=== PATIENT | female | born 1955 | race Two or more races ===

== ENCOUNTER 2024-01-10 10:41 | Outpatient (AMB) | payer MEDICARE, SELFPAY ==
--- NOTE | 2024-01-10 11:14 | PD.ORTHCLVIS ---
Vital signs 01/10/24 11:15 Height 1.45 m Height Method Stated Weight 84.056 kg Weight Measurement Method Standing Scale BMI 39.9 BP 141/79 H Blood Pressure Source Automatic Cuff Blood Pressure Location Right Upper Arm Position Sitting Respiration 18 Pulse 78 Pulse Source Monitor Temp 97.5 F Temp Source Temporal Artery Scan Pulse Oximetry (%) 97 Oxygen Delivery Method Room Air Med/Allergies Allergies & Medications Allergies No Known Allergies Allergy (Verified 12/13/23 08:47) Medication Reconciliation lisinopril 20 mg tablet 20 mg PO BID 10/07/23 [History Confirmed 01/10/24] aspirin 81 mg tablet,delayed release 81 mg PO BID #60 tabs 11/23/23 [Rx Confirmed 01/10/24] gabapentin 300 mg capsule 300 mg PO .qhs #30 caps 11/23/23 [Rx] sennosides 8.6 mg-docusate sodium 50 mg tablet (Senna-S) 1 tab-cap PO QDAY #30 tabs 11/23/23 [Rx Confirmed 01/10/24] oxycodone 5 mg tablet 5 mg PO Q6H PRN pain #28 tabs 12/02/23 [Rx Confirmed 01/10/24] oxycodone 5 mg tablet 5 mg PO Q6H PRN pain #28 tabs 12/13/23 [Rx Confirmed 01/10/24] cyclobenzaprine 5 mg tablet 5 mg PO TID PRN muscle spasm #60 tabs 12/21/23 [Rx Confirmed 01/10/24] oxycodone 5 mg tablet 5 mg PO Q6H PRN pain #28 tabs 12/21/23 [Rx Confirmed 01/10/24] cyclobenzaprine 5 mg tablet 5 mg PO TID PRN muscle spasm #60 tabs 12/27/23 [Rx Confirmed 01/10/24] Subjective Visit Visit for: follow up visit Immunization / Flu Flu Vaccine in the Last 12 Months: No Flu Vaccine Exclusion Criteria: No Exclusion Criteria History of Present Illness Chief complaint: FOLLOW UP Personal History Occupation: DISABLED Red flag PMH: none Pain Pain level (0-10): 5 Pain duration: COMES AND GOES Pain location: inside (medial), outside (lateral) and anterior Pain quality: dull and aching Ambulatory data Ambulatory device: cane Treatments Improvement with previous injections: No Improvement with PT: No Improvement with NSAIDS: n/a Review of Systems Review of Systems: All systems negative unless otherwise noted in HPI. Assessment and Plan Advanced Care Planning Discussion Advance care planning discussed with:: patient Office Procedures GNS Level of Care Nursing/Assessment Patient Status: Established Patient Nursing Assessment/Reassesment: Medication Reconciliation, Update PMH in EMR and Vital Signs Coordination of Care: Complex Care and Chronic Disease 1-5, Education Complex Pt/Fam, Consent,records obtained, informed consent, Results/Orders obtained and Staff clarify orders Special Needs: Language special needs Established Patient Charge Established Patient Point Assignment: 95 Established Patient Point Charge: EP Level 3 (80-115) Past Medical History Past Medical History Have you ever been diagnosed with any of the following: Neurological Problems Seizures: No Cardiology Problems Congestive Heart Failure: No Hypertension: Yes Respiratory Problems Chronic Obstructive Pulmonary Disease (COPD): No Smoking: No Smoking Cessation Counseling: No Smoking Exposure: No Tobacco Use: No Stomache/Intestinal Problems Hepatitis: No Obesity: Yes Genital/Urinary Problems Renal Disease: No Reproductive Problems Previous Pregnancies: Yes Musculoskeletal Problems Arthritis: Yes Endocrine Problems Diabetes Mellitus Type 1: No Diabetes Mellitus Type 2: No Other Problems Hospitalization: No Shingles: No Blood Transfusions: No Blood Transfusion Reaction: No Anesthesia Reactions: No Cancer: No Surgical History Total Knee Replacement: Yes
[2024-01-10 11:15] VITALS: BP 141/79; PULSE 78; RESP 18; TEMP 36.4; O2SAT 97; BMI 39.9
== END 2024-01-10 11:32 | disposition home or self-care (01) ==
LOC: HODSRG 10:41
PROVIDERS: Supervising Provider Orthopaedic Surgery Adult Reconstructive Orthopaedic Surgery; Visit Provider Orthopaedic Surgery Adult Reconstructive Orthopaedic Surgery
DX: R52 Pain, unspecified (principal); I10 Essential (primary) hypertension
CPT/HCPCS: 99213; G0463

== ENCOUNTER 2024-05-22 14:46 | Outpatient (AMB) | payer MEDICARE, MEDICAID, SELFPAY ==
[2024-05-22 14:53] VITALS: BP 111/73; PULSE 87; RESP 18; TEMP 36.1; O2SAT 95; BMI 40.7
--- NOTE | 2024-05-22 14:53 | ORTHONT_ITS ---
Vital signs 05/22/24 14:53 Height 1.45 m Height Method Stated Weight 85.729 kg Weight Measurement Method Standing Scale BMI 40.7 BP 111/73 Blood Pressure Source Automatic Cuff Blood Pressure Location Right Upper Arm Position Sitting Respiration 18 Pulse 87 Pulse Source Monitor Temp 97.0 F Temp Source Temporal Artery Scan Pulse Oximetry (%) 95 Oxygen Delivery Method Room Air Med/Allergies Allergies & Medications Allergies No Known Allergies Allergy (Verified 05/22/24 14:54) Medication Reconciliation lisinopril 20 mg tablet 20 mg PO BID 10/07/23 [History Confirmed 05/22/24] aspirin 81 mg tablet,delayed release 81 mg PO BID #60 tabs 11/23/23 [Rx Confirmed 05/22/24] sennosides 8.6 mg-docusate sodium 50 mg tablet (Senna-S) 1 tab-cap PO QDAY #30 tabs 11/23/23 [Rx Confirmed 05/22/24] oxycodone 5 mg tablet 5 mg PO Q6H PRN pain #28 tabs 12/02/23 [Rx Confirmed 05/22/24] oxycodone 5 mg tablet 5 mg PO Q6H PRN pain #28 tabs 12/13/23 [Rx Confirmed 05/22/24] cyclobenzaprine 5 mg tablet 5 mg PO TID PRN muscle spasm #60 tabs 12/21/23 [Rx Confirmed 05/22/24] oxycodone 5 mg tablet 5 mg PO Q6H PRN pain #28 tabs 12/21/23 [Rx Confirmed 05/22/24] cyclobenzaprine 5 mg tablet 5 mg PO TID PRN muscle spasm #60 tabs 12/27/23 [Rx Confirmed 05/22/24] gabapentin 300 mg capsule 300 mg PO .qhs #30 caps 01/10/24 [Rx Confirmed 05/22/24] Exam Exam Patient is in no acute distress and is cooperative with the examination today. Breathing is nonlabored. Patient has a normal mood and affect. Bilateral extremities were evaluated and demonstrates sensation intact to light touch. Palpable pedal pulses are present. No significant edema is present. Bilateral hips were examined. The patient has no pain with log roll of the hips. Internal rotation to 30 degrees and external rotation to 30 degrees is painless. Negative FADIR. Right knee was examined today. INcision is clean, dry, and intact The left knee is C/D/I. ROM 0-95 Assessment and Plan Problem List (1) Unilateral primary osteoarthritis, left knee: Status: Acute Plan: she is doing well s/p L TKA. We will see her back in approximately Advanced Care Planning Discussion Advance care planning discussed with:: patient Office Procedures GNS Level of Care Nursing/Assessment Patient Status: Established Patient Nursing Assessment/Reassesment: Medication Reconciliation, Update PMH in EMR and Vital Signs Coordination of Care: Complex Care and Chronic Disease 1-5, Education Complex Pt/Fam, Consent,records obtained, informed consent, Results/Orders obtained and Staff clarify orders Special Needs: Language special needs Established Patient Charge Established Patient Point Assignment: 95 Established Patient Point Charge: EP Level 3 (80-115) MA Intake Visit Data Collection New Patient or Established: Established Patient (seen at [facility] within 3 years) Reason for Visit:: POST OP KNEE PAIN Seen by Clinical Staff ONLY (RN/MA): No Verbal consent obtained for Telemed visit?: No PCP or OBGYN visit in last 3 months: Yes Hx Now: No Do You Feel Safe at Home: Yes Authorities Contacted: N/A Questionairres Past Medical History Past Medical History Have you ever been diagnosed with any of the following: Neurological Problems Seizures: No Cardiology Problems Congestive Heart Failure: No Hypertension: Yes Respiratory Problems Chronic Obstructive Pulmonary Disease (COPD): No Smoking: No Smoking Cessation Counseling: No Smoking Exposure: No Tobacco Use: No Stomache/Intestinal Problems Hepatitis: No Obesity: Yes Genital/Urinary Problems Renal Disease: No Reproductive Problems Previous Pregnancies: Yes Musculoskeletal Problems Arthritis: Yes Endocrine Problems Diabetes Mellitus Type 1: No Diabetes Mellitus Type 2: No Other Problems Hospitalization: No Shingles: No Blood Transfusions: No Blood Transfusion Reaction: No Anesthesia Reactions: No Cancer: No Surgical History Total Knee Replacement: Yes Subjective Visit Visit for: follow up visit and knee Immunization / Flu Flu Vaccine in the Last 12 Months: No Flu Vaccine Exclusion Criteria: No Exclusion Criteria History of Present Illness Chief complaint: KNEE PAIN Patient is 6 months out from left total knee replacement. She reports the pain is much better than before surgery. 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 We did discuss return to work. Personal History Red flag PMH: BMI BMI Counceling provided: Yes Pain Pain level (0-10): 8 Pain duration: WITH WALKING Pain location: anterior Pain quality: sharp Associated signs & symptoms: numbness Ambulatory data Ambulatory device: none Treatments Improvement with previous injections: No Improvement with PT: No Improvement with NSAIDS: no Review of Systems Review of Systems: All systems negative unless otherwise noted in HPI.
== END 2024-05-22 15:14 | disposition home or self-care (01) ==
LOC: HODSRG 14:46
PROVIDERS: Supervising Provider Orthopaedic Surgery Adult Reconstructive Orthopaedic Surgery; Visit Provider Orthopaedic Surgery Adult Reconstructive Orthopaedic Surgery
DX: M17.12 Unilateral primary osteoarthritis, left knee (principal); Z96.652 Presence of left artificial knee joint
CPT/HCPCS: 99213; G0463